=== PATIENT | female | born 1990 | race Hispanic/Latino ===

== ENCOUNTER 2020-07-18 13:58 | Emergency (ER) | payer OTHER ==
[~2020-07-18] VITALS: Ht 160 cm; Wt 65.5 kg
[2020-07-18] MEDS ORDERED: NS 1,000 ML IV ONE (18:00)
[2020-07-18] MEDS ORDERED: ACETAMINOPHEN 500 MG TAB PO ONE (19:05)
[2020-07-18 19:13] LABS: BASO % 0.2 % (0.0-1.0); EOS # 0.1 10^3/uL (0.0-0.5); EOS % 0.4 % (0.0-3.0); HEMATOCRIT 45.2 % (36.0-47.0); HEMOGLOBIN 14.4 g/dl (12.0-15.5); LYMPH # 1.6 10^3/uL (1.5-5.0); LYMPH % 12.9 % (24.0-44.0); MEAN CORPUSCULAR HEMOGLOBIN 25.2 pg (27.0-33.0); MEAN CORPUSCULAR HGB CONC 31.9 g/dl (32.0-36.5); MONO % 7.7 % (2.0-8.0); NEUTROPHILS # 9.7 10^3/uL (1.5-8.5); NEUTROPHILS % 78.3 % (36.0-66.0); PLATELET COUNT, AUTOMATED 251 10^3/uL (150-450); RED BLOOD COUNT 5.72 10^6/uL (4.00-5.40); WHITE BLOOD COUNT 12.4 10^3/uL (4.0-10.0)
[2020-07-18 19:39] LABS: ALT/SGPT 19 U/L (12-78); BILIRUBIN,DIRECT 0.2 MG/DL (0.0-0.2); BILIRUBIN,TOTAL 0.4 MG/DL (0.2-1.0); BLOOD UREA NITROGEN 7 MG/DL (7-18); CALCIUM LEVEL 9.4 MG/DL (8.5-10.1); CARBON DIOXIDE LEVEL 27 MEQ/L (21-32); CHLORIDE LEVEL 104 MEQ/L (98-107); CK-MB VALUE MASS < 1.0 NG/ML (<3.6); CPK CREATINE PHOSPHOKINASE 139 U/L (26-192); CREATININE FOR GFR 0.69 MG/DL (0.55-1.30); GLOMERULAR FILTRATION RATE > 60.0 (>60); GLUCOSE, FASTING 81 MG/DL (70-100); LIPASE 102 U/L (73-393); MB/CK RELATIVE INDEX 0.72 (< OR =4); POTASSIUM SERUM 3.9 MEQ/L (3.5-5.1); SODIUM LEVEL 138 MEQ/L (136-145); TOTAL PROTEIN 8.1 GM/DL (6.4-8.2); TROPONIN I < 0.02 NG/ML (< 0.10)
--- NOTE | 2020-07-18 21:24 | REPVR ---
PROCEDURE INFORMATION: Exam: XR Complete Acute Abdomen Series Exam date and time: 07/18/2020 8:25 PM Age: 29 years old Clinical indication: Abdominal pain; Acute TECHNIQUE: Imaging protocol: XR complete acute abdomen series, including 2 or more views of the abdomen and a single view chest. COMPARISON: No relevant prior studies available. FINDINGS: Lungs: Normal. No consolidation. Pleural spaces: Normal. No pleural effusions. No pneumothorax. Heart/Mediastinum: Normal. No cardiomegaly. Gastrointestinal tract: Mild gas in the GI tract, primarily colonic without abnormal dilatation. Gas is noted to the level of the sigmoid. No abnormal air-fluid levels. Intraperitoneal space: No free air. Bones/joints: Normal. No acute fracture. Soft tissues: Normal. IMPRESSION: 1. Negative chest. 2. Negative abdomen with mild gas which is primarily colonic. Electronically signed by: Pernell Matta On 07/18/2020 21:24:37 PM
--- NOTE | 2020-07-18 22:07 | REPVR ---
PROCEDURE INFORMATION: Exam: US Retroperitoneal Limited, Kidneys Exam date and time: 07/18/2020 9:43 PM Age: 29 years old Clinical indication: Abdominal pain; Additional info: L flank pain, hematuria, R/O stone TECHNIQUE: Imaging protocol: Real-time ultrasound of the retroperitoneum with image documentation. Examination was focused on the kidneys. COMPARISON: CR Abdomen,Flat Upright,PA CHEST 07/18/2020 8:02 PM FINDINGS: Right kidney: The right kidney measures 11.7 cm in its cephalocaudad dimension and 4.0 x 4.6 cm in diameter. No mass, cyst or hydronephrosis. Left kidney: The left kidney measures 10.2 cm in its cephalocaudad dimension and 4.7 x 4.9 cm in diameter. No mass, cyst or hydronephrosis. Bladder: The urinary bladder appears normal. IMPRESSION: Negative renal sonogram. No stones or hydronephrosis. Electronically signed by: Pernell Matta On 07/18/2020 22:06:29 PM
[2020-07-18 22:50] VITALS: BP 112/70
--- NOTE | 2020-07-19 19:40 | ECGEPIP ---
[facility] - ED Test Date: 2020-07-18 Pat Name: NEIL LOYA Department: Room: - Gender: Female Case Management Rn: AYLEEN : 1990 Requested By: REENA Beal PA-C Order Number: [id number] Reading MD: Demetria Rausch Measurements Intervals [place] Rate: 83 P: 69 CT: 156 QRS: 41 QRSD: 82 T: 39 QT: 372 QTc: 437 Interpretive Statements Normal sinus rhythm NSTTW abnormalities No prior Electronically Signed on 07-19-2020 19:40:08 EDT by Demetria Rausch
== END 2020-07-18 22:55 | disposition home or self-care (01) ==
LOC: M ED 13:58
DX: R10.9 Unspecified abdominal pain (principal); R11.2 Nausea with vomiting, unspecified; Z82.49 Family history of ischemic heart disease and other diseases of the circulatory system